=== PATIENT | male | born 1990 | race Caucasian/White ===

== ENCOUNTER 2018-07-23 20:24 | Emergency (ER) | payer OTHER ==
--- NOTE | 2018-07-23 20:36 | PDOC ---
Rapid Medical Evaluation Chief Complaint: Headache Time Seen by Provider: 07/23/18 20:34 Medical Evaluation: Allergies Allergy/AdvReac Type Severity Reaction Status Date / Time No Known Allergies Allergy Verified 07/23/18 20:34 07/23/18 20:34 I have performed a brief in person evaluation at triage on this patient. CC: FINLEY HPI: Pt is a 28 YO male who states that he has had a FINLEY x 10 days. Pt also complains of a lesion on his right upper lid. PE: Skin: clear Lungs: clear Heart: RRR MS: Moves all extremities without difficulty Neuro: Alert and oriented Psych: Appropriate affect Pt will proceed to [facility] for further evaluation. Discharge Disposition - Diagnosis Headache Qualifiers: Headache type: unspecified Headache chronicity pattern: acute headache Intractability: not intractable Qualified Code(s): R51 - Headache - Referrals - Patient Instructions - Post Discharge Activity
[2018-07-23 20:37] VITALS: BP 140/85; PULSE 55; TEMP 98.6; BMI 27.7
[2018-07-23] MEDS ORDERED: ACETAMINOPHEN 500 MG TABLET (FP) PO ONE (21:06)
--- NOTE | 2018-07-23 21:19 | PDOC ---
History of Present Illness - General Chief Complaint: Headache Stated Complaint: LT. EYE PAIN Time Seen by Provider: 07/23/18 20:34 - History of Present Illness Initial Comments: 07/23/18 21:15 28-year-old male without comorbidities her ALLERGIES to medication presents for evaluation of right eye pain 10 days with and intermittent associated headache. He feels this headache is related to his eye pain. He's been using a stye ointment which has not helped him. No fevers chills or night sweats Past History - Past Medical History Allergies/Adverse Reactions: Allergies Allergy/AdvReac Type Severity Reaction Status Date / Time No Known Allergies Allergy Verified 07/23/18 20:34 Home Medications: Ambulatory Orders Erythromycin 0.5% Eye Ointment [Erythromycin 0.5% Eye Ointment -] 1 applic OD TID #1 tube 07/23/18 Tobramycin 0.3% Ophth Soln [Tobrex Ophthalmic Solution -] 1 drop OD Q4HWA #1 bottle 07/23/18 COPD: No - Suicide/Smoking/Psychosocial Hx Smoking History: Never smoked Review of Systems - Review of Systems Constitutional: No: Chills, Fever, Night Sweats HEENTM: Yes: Eye Pain. No: Recent change in vision *Physical Exam - Vital Signs Last Vital Signs Temp Pulse Resp BP Pulse Ox 98.6 F 55 L 18 140/85 100 07/23/18 20:34 07/23/18 20:34 07/23/18 20:34 07/23/18 20:34 07/23/18 20:34 - Physical Exam Comments: 07/23/18 21:16 HEAD: NC/AT EYES: Conjuntiva clear there is an external stye on the oral aspect of the right upper lid wich is erythemic, warm and fluctuant. MS: Full ROM in all joints without edema NEUROLOGIC: No gross sensory or motor deficits, NVID SKIN: Normal color and temperature no lesions or rashes 07/23/18 21:18 Medical Decision Making - Medical Decision Making 07/23/18 21:17 The headache is related to his thigh, the patient states this is not the worst headache of his life. He relates his headache to the stye he has not taken anything I will try a dose of Tylenol in the emergency room to see if this helps him. Under aseptic technique the stye was prepped with alcohol incised with an 11 blade a small puncture wound was made no purulence was expressed bleeding was controlled. I will prescribe for him erythromycin ointment as well as tobramycin eyedrops for instillation in his eye. 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 07/23/18 21:33 FINLEY relieved with PO tylenol *DC/Admit/Observation/Transfer Diagnosis at time of Disposition: Sty, external Headache Qualifiers: Headache type: unspecified Headache chronicity pattern: acute headache Intractability: not intractable Qualified Code(s): R51 - Headache - Discharge Dispostion Disposition: HOME Condition at time of disposition: Stable Decision to Admit order: No - Referrals - Patient Instructions Printed Discharge Instructions: DI for Blepharitis Additional Instructions: Eyedrops and eye ointment as directed. Warm compresses 5-6 times a day as discussed in the emergency room. Return to the emergency room should symptoms worsen or go unresolved and keep your appointment with your drag out worker in the next 2 days. - Post Discharge Activity
[2018-07-23] MEDS ORDERED: ACETAMINOPHEN 325 MG TABLET (FP) ONE (21:21)
== END 2018-07-23 21:48 | disposition home or self-care (01) ==
LOC: JERFT 20:24
DX: H00.011 Hordeolum externum right upper eyelid (principal); R51 Headache
CPT/HCPCS: 99281-25